=== PATIENT | female | born 1960 | race Caucasian/White ===

== ENCOUNTER 2022-01-25 15:22 | Emergency (ER) | payer OTHER ==
[2022-01-25 15:35] VITALS: BP 142/96; PULSE 87; RESP 18; TEMP 98.8; BMI 28.7
== END 2022-01-25 17:08 | disposition home or self-care (01) ==
LOC: FER 15:22
DX: R05.1 Acute cough (principal)
CPT/HCPCS: 0241U-QW; 99283-25

== ENCOUNTER 2022-09-06 10:48 | Emergency (ER) | payer OTHER ==
[2022-09-06 11:20] VITALS: BP 139/98; PULSE 77; RESP 18; TEMP 99.1; BMI 26.6
== END 2022-09-06 12:10 | disposition home or self-care (01) ==
LOC: FER 10:48
DX: S20.212A Contusion of left front wall of thorax, initial encounter (principal); V89.2XXA Person injured in unspecified motor-vehicle accident, traffic, initial encounter
CPT/HCPCS: 71046-TC-FY; 71101-TC-LT-FY; 99283-25